=== PATIENT | female | born 1965 | race Caucasian/White ===

== ENCOUNTER 2020-12-15 23:36 | Emergency (ER) | payer OTHER, MEDICAID, SELFPAY ==
[2020-12-15 23:38] VITALS: BP 136/72; PULSE 77; RESP 20; TEMP 37.1; O2SAT 98
[2020-12-16 00:04] LABS: Add Manual Diff / Slide Review NO; Basophils Absolute Auto 100 /uL (0-100); Basophils Percent Auto 0.4 % (0-2); Eosinophils Absolute Auto 0 /uL (0-450); Eosinophils Percent Auto 0.1 % (2-4); Hematocrit 39.4 % (36-46); Hemoglobin 12.6 g/dL (12.0-16.0); Lymphocytes Absolute Auto 1400 /uL (1100-4500); Lymphocytes Percent Auto 12.7 % (25-40); Mean Corpuscular HGB Conc 32.1 % (30-36); Mean Corpuscular Hemoglobin 27.4 PG (26-34); Mean Corpuscular Volume 85.6 fL (80-100); Monocytes Absolute Auto 700 /uL (0-900); Monocytes Percent Auto 6.2 % (3-14); Neutrophils Absolute Auto 9100 /uL (1500-7000); Neutrophils Percent Auto 80.6 % (50-75); Platelet Count 229 X10^3/uL (150-400); Red Blood Cell Count 4.61 X10^6/uL (4.0-5.2); White Blood Cell Count 11.3 X10^3/uL (4.5-11.0)
[2020-12-16 00:16] LABS: Acetaminophen < 10 ug/mL (10-30); Alanine Aminotransferase 16 IU/L (<35); Albumin Globulin Ratio 1.4 (1.0-2.8); Alkaline Phosphatase 85 U/L (38-126); Aspartate Aminotransferase 26 IU/L (14-36); BUN Creatinine Ratio 32.3 (6-22); Bilirubin Total 0.8 mg/dL (0.2-1.3); Blood Urea Nitrogen 30 mg/dL (7-17); Carbon Dioxide 27 mmol/L (22-32); Chloride 106 mmol/L (98-107); Estimated Glomerular Filt Rate > 60.0 mL/min (>60); Ethanol (ETOH) < 10 mg/dL; Globulin 3.5 g/dL (1.7-4.1); Glucose 109 mg/dL (70-100); HEMOLYSIS < 15 (0-50); Potassium 4.4 mmol/L (3.4-5.1); Salicylate < 1.0 mg/dL (<20); Sodium 140 mmol/L (137-145); Total Protein 8.5 g/dL (6.3-8.2)
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
[2020-12-16 00:40] LABS: RBC Urine None Seen (0-5/HPF)
[2020-12-16 00:41] LABS: Ur Creatinine Normal (Normal); Ur Specific Gravity Normal (Normal); Urine Cocaine Negative (Negative); Urine Tetrahydrocannabinol Negative (Negative); Urine pH Normal (Normal)
[2020-12-16 00:42] LABS: UR Morphine/Opiate cutoff 300 Negative (Negative); Urine Amphetamines Positive (Negative); Urine Barbiturates Negative (Negative); Urine Benzodiazepines Negative (Negative); Urine MDMA Negative (Negative); Urine Methadone Negative (Negative); Urine Methamphetamines Positive (Negative); Urine Oxycodone Negative (Negative); Urine Phencyclidine Negative (Negative); Urine Tricyclic Antidepressant Negative (Negative)
[2020-12-16 00:46] LABS: Bacteria Urine Many (>30); Culture Indicated Urine Specimen Cultured; Squamous Epithelial Cell Urine 1-5 /HPF (0-5/HPF); WBC Urine 5-10/HPF (0-5/HPF)
[2020-12-16 01:23] LABS: Free T4, Direct Thyroxine 1.46 ng/dL (0.78-2.19)
--- NOTE | 2020-12-16 02:02 | PC.NURSE ---
Pt ask repeatedly to step back in room while waiting for D/C Paperwork. Pt refused .
--- NOTE | 2020-12-16 02:17 | PC.NURSE ---
pt pacing outside room, asked to please stay in room for pt privacy. continues to pace outside room. stating multiple times she needs to leave because her son is outside and late for work. asking for water. given. talking on cell phone to someone. stating these fucking people are taking too long i need to leave. Pt given PO bactrim. holding med cup and refusing to take meds. states i think i want to do it the natural way like my sister did with cranberry juice. advised that her UTI can worsen and lead to kidney infection and possibly sepsis. states i dont care you people are trying to poison me Refusing to sign DC paperwork. Reports she doesnt know what she is signing even after receiving in depth DC instructions. ambulated out ED doors with steady gait. did not sign or take DC paperwork and refused Bactrim tablet in department. Dr Bo made aware
--- NOTE | 2020-12-16 02:18 | PC.NURSE ---
Pt waited for about [address] left room until nurse brought her paperwork and medication to her, She was very anxious to leave stating that her son was going to be so mad because he wwas late to work and he was her ride. when the nurse tye the medicine and D/C paperwork, pt continued to speak into her phone and refused to take the medicine and refused to sign her discharge. she stated that she was on the phone with her sister and that they would be discussing weather of not she would take the medication. The nurse told her that she did not have to sign but it would be appreciated, Pt refused and walked out without paperwork, prescription, or without taking the medication the Dr ordered.
== END 2020-12-16 02:16 | disposition home or self-care (01) ==
PROVIDERS: Emergency Provider Emergency Medicine
DX: F43.10 Post-traumatic stress disorder, unspecified (principal); F41.9 Anxiety disorder, unspecified; F15.10 Other stimulant abuse, uncomplicated; N30.00 Acute cystitis without hematuria
CPT/HCPCS: 36415; 80053; 80305; 80320; 80329; 81003; 81015; 81025; 84439; 84443; 85025; 87077; 87086; 87186; 99283; G0480

== ENCOUNTER 2020-12-16 06:17 | Emergency (ER) | payer OTHER, MEDICAID, SELFPAY ==
[2020-12-16 06:38] VITALS: BP 151/70; PULSE 60; RESP 20; TEMP 36.6; O2SAT 100; BMI 23.3
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
--- NOTE | 2020-12-16 09:17 | PC.NURSE ---
Pt given a breakfast tray but not wanting to eat
[2020-12-16 14:22] VITALS: BP 149/71; PULSE 101; RESP 16; O2SAT 97
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
== END 2020-12-16 15:01 | disposition home or self-care (01) ==
PROVIDERS: Emergency Provider Emergency Medicine
DX: N39.0 Urinary tract infection, site not specified (principal); F41.9 Anxiety disorder, unspecified; F15.10 Other stimulant abuse, uncomplicated; F32.9 Major depressive disorder, single episode, unspecified
CPT/HCPCS: 99283